=== PATIENT | female | born 1975 | race Caucasian/White ===

== ENCOUNTER → 2017-04-01 | Outpatient (CLI) | payer BC ==
[~2017-04-01] MED LIST: ADVIL200 MG PO; IBUPROFEN800 MG PO; IMITREX100 MG PO; PERCOCET 5-3251 EACH PO; PLEXUS PO
== END | disposition disaster alternative care site (69) ==
LOC: GBCOE 15:19
DX: Z12.31 Encounter for screening mammogram for malignant neoplasm of breast (principal)
CPT/HCPCS: G0202